=== PATIENT | male | born 1995 | race Caucasian/White ===

== ENCOUNTER → 2017-04-22 | Outpatient (CLI) | payer OTHER ==
[~2017-04-22] MED LIST: CLIN1GEL5 TOP; FLUT27.5 NAE; LORA10TA51 PO; MULT-506 PO
== END | disposition home or self-care (01) ==
LOC: C.PATHSPEC 17:00
PROVIDERS: ATTEND Podiatrist Foot & Ankle Surgery
DX: B07.9 Viral wart, unspecified (principal)